=== PATIENT | male | born 1960 | race Caucasian/White ===

== ENCOUNTER 2020-06-25 09:39 | Emergency (ER) | payer OTHER ==
[~2020-06-25 09:39] MED LIST: CELEXA10 MG PO; CYCLOBENZAPRINE10 MG PO; PERCOCET 5-3251 EACH PO; VOLTAREN **OUT75 MG PO; XARELTO10 MG PO
[2020-06-25 10:42] LABS: BASOPHIL 0.8 % (0-2); EOSINOPHIL 0.5 % (0-5); HCT 49.2 % (42.0-52.0); HGB 16.6 g/dl (13.2-18.0); LYMPHOCYTE 25.2 % (15-48); MCH 30.6 pg (25.0-31.0); MCHC 33.7 g/dL (32.0-36.0); MCV 90.8 fL (78.0-100.0); MONOCYTE 6.1 % (0-12); MPV 9.5 fL (6.0-9.5); NEUTROPHIL 66.6 % (41-80); NRBC 0; PLT 265 K/uL (150-400); RBC 5.42 M/uL (4.70-6.00); RDW 13.1 % (11.5-14.0); WBC 7.8 K/uL (4.0-10.5)
[2020-06-25 10:50] LABS: ALBUMIN 3.8 g/dL (3.4-5.0); BILIRUBIN - TOTAL 0.4 mg/dL (0.2-1.0); BUN/CREAT RATIO (CALC) 20.7 RATIO; CREATININE 0.87 mg/dL (0.67-1.17); GLOBULIN (CALCULATION) 3.1 g/dL; TOTAL PROTEIN 6.9 g/dL (6.4-8.2)
[2020-06-25 10:52] LABS: INR 1.08 (0.9-1.2); PROTHROMBIN TIME 13.3 SECONDS (11.4-13.6); PTT 29.2 SECONDS (22.2-34.7)
[2020-06-25 11:21] LABS: BILIRUBIN NEGATIVE (NEGATIVE); BLOOD TRACE-LYSED Ery/uL (NEGATIVE); CLARITY CLEAR (CLEAR); COLOR YELLOW (YELLOW); GLUCOSE (U) NORMAL (NORMAL); LEUKOCYTES NEGATIVE Leu/uL (NEGATIVE); NITRITE NEGATIVE (NEGATIVE); PROTEIN NEGATIVE (NEGATIVE); SPECIFIC GRAVITY 1.025 (1.001-1.030); UROBILINOGEN 0.2 mg/dL (0.2-1.0)
[2020-06-25 11:36] LABS: URINARY RBC RARE; URINARY WBC RARE
== END 2020-06-25 14:13 | disposition home or self-care (01) ==
LOC: FER 09:39
PROVIDERS: Emergency Medicine
DX: R20.2 Paresthesia of skin (principal); H53.8 Other visual disturbances; R53.1 Weakness
CPT/HCPCS: 36415; 70450; 71045; 80053; 80061; 81001; 84484; 85025; 85610; 85730; 93005; Q9967

== ENCOUNTER 2020-10-11 12:46 | Emergency (ER) | payer OTHER ==
[2020-10-11 13:13] LABS: BASOPHIL 0.6 % (0-2); EOSINOPHIL 0.2 % (0-5); HCT 49.5 % (42.0-52.0); HGB 15.8 g/dl (13.2-18.0); LYMPHOCYTE 8.5 % (15-48); MCH 29.5 pg (25.0-31.0); MCHC 31.9 g/dL (32.0-36.0); MCV 92.4 fL (78.0-100.0); MONOCYTE 7.8 % (0-12); MPV 9.7 fL (6.0-9.5); NRBC 0; PLT 505 K/uL (150-400); RBC 5.36 M/uL (4.70-6.00); WBC 17.9 K/uL (4.0-10.5)
[2020-10-11 13:20] LABS: INR 1.19 (0.9-1.2); PROTHROMBIN TIME 14.5 SECONDS (11.8-13.4)
[2020-10-11 13:21] LABS: PTT 30.8 SECONDS (24.4-34.7)
[2020-10-11 13:27] LABS: C-REACTIVE PROTEIN 3.5 mg/dL (<=0.90)
[2020-10-11 13:31] LABS: ALBUMIN 3.2 g/dL (3.4-5.0); BILIRUBIN - TOTAL 0.8 mg/dL (0.2-1.0); BUN/CREAT RATIO (CALC) 17.5 RATIO; CREATININE 1.14 mg/dL (0.67-1.17); GLOBULIN (CALCULATION) 4.3 g/dL; POTASSIUM 4.4 mmol/L (3.5-5.1); TOTAL PROTEIN 7.5 g/dL (6.4-8.2)
[2020-10-11 13:36] LABS: LACTIC ACID 4.2 mmol/L (0.4-1.9)
== END 2020-10-11 20:49 | disposition other institution (70) ==
LOC: FER 12:46
PROVIDERS: Internal Medicine
DX: I49.9 Cardiac arrhythmia, unspecified (principal); T68.XXXA Hypothermia, initial encounter; J81.1 Chronic pulmonary edema; I25.10 Atherosclerotic heart disease of native coronary artery without angina pectoris; Z95.5 Presence of coronary angioplasty implant and graft; Z20.822 Contact with and (suspected) exposure to COVID-19
CPT/HCPCS: 36415; 36600; 71045; 80053; 82803; 83605; 83690; 83735; 83880; 84484; 85025; 85610; 85730; 86140; 87040; 93005; 94660; J0282; J1940; J2060; J2250; J2270; J2405; J2543; J2550; J7030; J7060; Q9967; U0002

== ENCOUNTER 2020-11-06 07:25 | Emergency (ER) | payer OTHER ==
[2020-11-06 08:34] LABS: BASOPHIL 0.8 % (0-2); EOSINOPHIL 2.2 % (0-5); HCT 42.9 % (42.0-52.0); HGB 13.8 g/dl (13.2-18.0); MCH 29.6 pg (25.0-31.0); MCHC 32.2 g/dL (32.0-36.0); MCV 92.1 fL (78.0-100.0); MONOCYTE 7.9 % (0-12); MPV 9.8 fL (6.0-9.5); NEUTROPHIL 73.4 % (41-80); NRBC 0; PLT 248 K/uL (150-400); RBC 4.66 M/uL (4.70-6.00); RDW 14.5 % (11.5-14.0); WBC 9.6 K/uL (4.0-10.5)
[2020-11-06 08:57] LABS: LACTIC ACID 1.8 mmol/L (0.4-1.9)
[2020-11-06 09:02] LABS: ALBUMIN 3.4 g/dL (3.4-5.0); BILIRUBIN - TOTAL 0.5 mg/dL (0.2-1.0); BUN/CREAT RATIO (CALC) 22.8 RATIO; C-REACTIVE PROTEIN 0.4 mg/dL (<=0.90); CREATININE 0.92 mg/dL (0.67-1.17); GLOBULIN (CALCULATION) 3.6 g/dL; POTASSIUM 3.9 mmol/L (3.5-5.1)
== END 2020-11-06 14:08 | disposition home or self-care (01) ==
LOC: FER 07:25
PROVIDERS: Emergency Medicine
DX: I50.1 Left ventricular failure, unspecified (principal); I25.2 Old myocardial infarction; I25.10 Atherosclerotic heart disease of native coronary artery without angina pectoris; Z95.0 Presence of cardiac pacemaker; Z95.5 Presence of coronary angioplasty implant and graft
CPT/HCPCS: 36415; 71250; 80053; 82728; 83605; 83615; 83880; 84145; 84443; 84484; 85025; 86140; 93005; J1940

== ENCOUNTER 2021-08-12 12:02 | Emergency (ER) | payer OTHER ==
[~2021-08-12] VITALS: Ht 172.7 cm; Wt 111.1 kg
== END 2021-08-12 14:06 | disposition home or self-care (01) ==
LOC: FER 12:02
DX: S80.12XA Contusion of left lower leg, initial encounter (principal); I11.0 Hypertensive heart disease with heart failure; I50.9 Heart failure, unspecified; I25.2 Old myocardial infarction
CPT/HCPCS: 93971